=== PATIENT | female | born 1970 | race Caucasian/White ===

== ENCOUNTER 2018-12-13 04:01 | Emergency (ER) | payer BC ==
[~2018-12-13] VITALS: Ht 165.1 cm; Wt 117.9 kg
--- OUTSIDE RECORDS SUMMARY | ~2018-12-13 | XMS | Clinical Summary ---
Demographics + + + | Address | [address] | | | [place] [address] | + + + | Home Phone | | + + + | Preferred Language | Unknown | + + + | Marital Status | Single | + + + | Catholic Affiliation | Unknown | + + + | Race | Unknown | + + + | Ethnic Group | Unknown | + + + Author + + + | Author | [facility] | | | and [place] | + + + | Organization | [facility] | | | and [place] | + + + | Address | Unknown | + + + | Phone | Unavailable | + + + Support + + +---------+ + | Name | Relationship | Address | Phone | + + +---------+ + | Sujatha Haney | ECON | Unknown | | + + +---------+ + | Mary Lou Ayala | ECON | Unknown | | + + +---------+ + | Krysten Barahona | ECON | Unknown | | + + +---------+ + Care Team Providers + +------+ + | Care Cabinet Abrasive Sandblaster Name | Role | Phone | + +------+ + | Sachin Wallace DO | PP | Unavailable | + +------+ + Allergies No Known Allergies Current Medications + + +-------+---------+------+------+-------+ | Prescription | Sig. | Disp. | Refills | Star | End | Statu | | | | | | t | Date | s | | | | | | Date | | | + + +-------+---------+------+------+-------+ | omeprazole | Take 20 mg by mouth | | | | | Activ | | (PRILOSEC) 20 mg | every morning | | | | | e | | capsule | (before breakfast). | | | | | | + + +-------+---------+------+------+-------+ Active Problems + + + | Problem | Noted Date | + + + | Abdominal pain, unspecified site | 08/26/2014 | + + + + + | Overview: ICD-10 Record update | + + + + + | Nausea alone | 08/26/2014 | + + + + + | Overview: ICD-10 Record update | + + + + + | H. pylori infection | 08/26/2014 | + + + | Morbid obesity (HCC) | 08/26/2014 | + + + | Other chronic nonalcoholic liver disease | 08/26/2014 | + + + Family History + + +------+ + | Medical History | Relation | Name | Comments | + + +------+ + | Colon cancer | Maternal | | | | | Grandmoth | | | | | er | | | + + +------+ + | Diabetes | Maternal | | | | | Grandmoth | | | | | er | | | + + +------+ + | Anxiety disorder | Mother | | | + + +------+ + | Colon polyps | Sister | | | + + +------+ + + +------+ + + | Relation | Name | Status | Comments | + +------+ + + | Father | | | killed on the job | | | | (Age | | | | | 57) | | + +------+ + + | Maternal Grandmother | | | | + +------+ + + | Mother | | Alive | | + +------+ + + | Sister | | Alive | | + +------+ + + Social History + +-------+ +--------+------+ | Tobacco Use | Types | Packs/Day | Years | Date | | | | | Used | | + +-------+ +--------+------+ | Never Smoker | | | | | + +-------+ +--------+------+ + +---+---+---+ | Smokeless Tobacco: | | | | | Never Used | | | | + +---+---+---+ + + +---------+ + | Alcohol Use | Drinks/We | oz/Week | Comments | | | ek | | | + + +---------+ + | No | | | | + + +---------+ + + + + | Sex Assigned at | Date Recorded | | | | + + + | Not on file | | + + + Last Filed Vital Signs + + + + | Vital Sign | Reading | Time Taken | + + + + | Blood Pressure | 142/98 | 10/07/20147 PST | + + + + | Pulse | 70 | 10/07/20141056 PST | + + + + | Temperature | 36.7 C (98.1 F) | 10/07/20141056 PST | + + + + | Respiratory Rate | 16 | 10/07/20141056 PST | + + + + | Oxygen Saturation | 97% | 09/10/20141049 PST | + + + + | Inhaled Oxygen | - | - | | Concentration | | | + + + + | Weight | 136.1 kg (300 lb) | 10/07/20141056 PST | + + + + | Height | 165.1 cm (5' 5") | 09/10/2014 0800 PST | + + + + | Body Mass Index | 49.92 | 10/07/2014 1057 PST | + + + + Plan of Treatment + + + + + | Health Maintenance | Due Date | Last Done | Comments | + + + + + | Vaccine: | | | | | Dtap/Tdap/Td (1 - | 0 | | | | Tdap) | | | | + + + + + | Cervical Cancer | | | | | Screening (Pap) | 1 | | | + + + + + | PRIMARY CARE | | 10/07/2014 | | | OUTREACH-MODERATE | 6 | | | | RISK EVERY 1 YEAR | | | | + + + + + | Vaccine: Influenza | | | | | (#1) | 8 | | | + + + + + Results Not on filefrom Last 3 Months Insurance +---------+--------+ +------+ +---------+ | Payer | Benefi | Subscriber | Type | Phone | Address | | | t Plan | ID | | | | | | / | | | | | | | Group | | | | | +---------+--------+ +------+ +---------+ | PREMERA | PREMER | [id number] | PPO | [phone] | | | A | 2 | | [phone] | | | | PREFER | | | | | | | RED | | | | | +---------+--------+ +------+ +---------+ + +--------+ +--------+ + + | Guarantor Name | Accoun | Relation to | Date | Phone | Billing Address | | | t Type | Patient | of | | | | | | | | | | + +--------+ +--------+ + + | LORRIE AYALA | Person | Self | [birth year] | Work: | [address] | | | [employer] | | 1970 | +- | [place] [address] | | | [place] | | | [phone]: | | | | | | | | | | | | | | [phone] | | | | | | | [phone] | | + +--------+ +--------+ + +
--- OUTSIDE RECORDS SUMMARY | ~2018-12-13 | XMS | Clinical Summary ---
Demographics + + + | Address | [address] | | | [place] [address] | + + + | Home Phone | | + + + | Preferred Language | Unknown | + + + | Marital Status | Single | + + + | Baptism Affiliation | Unknown | + + + | Race | Unknown | + + + | Ethnic Group | Unknown | + + + Author + + + | Author | [facility] | | | and [place]ana | + + + | Organization | [facility] | | | and Davidana [...] Team Providers + +------+ + | Care Map Plotter Name | Role | Phone | + [...] +------+ +---------+ | PREMER[employer] | PREMER | [id number] | PPO | [phone] | | | [...] | 1970 | +- | [place] [address] | | | [place] | | | [phone]: | | | | | | | | | | | | | | [phone] | | | | | | | [phone] | | + +--------+ +--------+ + +
[~2018-12-13 04:01] MED LIST: CHLORTHALIDONE25 MG PO; INDOMETHACIN25 MG PO; LISINOPRIL10 MG PO; LOVASTATIN40 MG PO; METFORMIN HCL500 M1 PO; TRAMADOL HCL50 MG PO
[2018-12-13] MEDS ORDERED: ZYLOPRIM300 MG PO (04:19)
[2018-12-13] MEDS ORDERED: ACYCLOVIR800 MG PO (04:20)
[2018-12-13] MEDS ORDERED: NORCO 5-325 TA1 EACH PO (04:50)
== END 2018-12-13 05:00 | disposition home or self-care (01) ==
LOC: ED 04:01
DX: B02.9 Zoster without complications (principal); E11.9 Type 2 diabetes mellitus without complications; I10 Essential (primary) hypertension; G47.30 Sleep apnea, unspecified; Z79.899 Other long term (current) drug therapy
CPT/HCPCS: 99283

== ENCOUNTER 2022-05-19 08:29 | Emergency (ER) | payer OTHER ==
[~2022-05-19] VITALS: Ht 165.1 cm; Wt 117.9 kg
[~2022-05-19 08:29] MED LIST changes: +ACYCLOVIR800 MG PO; +NORCO 5-325 TA1 EACH PO; +ZYLOPRIM300 MG PO
[2022-05-19] MEDS ORDERED: SERTRALINE HCL50 MG PO (08:51)
[2022-05-19] MEDS ORDERED: ONDANSETRON ODT8 MG PO (09:48)
[2022-05-19] MEDS ORDERED: LOMOTIL TABLET1 EACH PO (09:48)
[2022-05-19] MEDS ORDERED: VITAMIN D21250 MCG PO (10:02)
[2022-05-19] MEDS ORDERED: ALLOPURINOL100 MG PO (10:04)
[2022-05-19] MEDS ORDERED: RYBELSUS3 MG PO (10:04)
== END 2022-05-19 10:41 | disposition home or self-care (01) ==
LOC: ED 08:29
DX: U07.1 COVID-19 (principal); K52.9 Noninfective gastroenteritis and colitis, unspecified; E11.9 Type 2 diabetes mellitus without complications; I10 Essential (primary) hypertension; M10.9 Gout, unspecified; Z79.84 Long term (current) use of oral hypoglycemic drugs; Z79.899 Other long term (current) drug therapy
CPT/HCPCS: 36415; 80053; 83735; 85025; 96374; 99284-25; J2405; J7030

== ENCOUNTER 2023-10-02 13:13 | Observation (INO) | payer OTHER ==
[~2023-10-02] VITALS: Ht 165.1 cm; Wt 110.2 kg
[~2023-10-02 13:13] MED LIST changes: +ALLOPURINOL100 MG PO; +CIPRO500 MG PO; +LOMOTIL TABLET1 EACH PO; +METRONIDAZOLE500 MG PO; +ONDANSETRON ODT8 MG PO; +RYBELSUS3 MG PO; +SERTRALINE HCL50 MG PO; +VITAMIN D21250 MCG PO
[2023-10-02 13:43] LABS: BASOPHILS 0.7 % (0-2); EOSINOPHILS 0.4 % (0-6); HEMATOCRIT 45.8 % (35.0-50.0); HEMOGLOBIN 14.8 g/dL (12.0-18.0); LYMPHOCYTES 10.8 % (24-44); MCH 29.8 (27-36); MCHC 32.3 g/dl (30-36); MONOCYTES 3.7 % (0-12); NEUTROPHILS 84.4 % (39-80); PLATELET COUNT 384 K/uL (140-440); RBC 4.98 M/ul (4.3-5.7); RDW 14.9 (10.5-15.0)
[2023-10-02 13:55] LABS: ALBUMIN 4.2 g/dL (3.4-5.0); ALBUMIN/GLOBULIN RATIO 1.2 (1.1-2.4); BILIRUBIN, TOTAL 0.5 ng/dL (0.2-1.0); BUN/CREATININE RATIO 13.83 (6.0-28.6); CALCIUM 9.5 mg/dL (8.5-10.1); CREATININE, SERUM 1.59 mg/dL (0.55-1.02); MAGNESIUM 1.7 mg/dL (1.8-2.4); PROTEIN, TOTAL 7.7 g/dL (6.4-8.2)
[2023-10-02] MEDS ORDERED: OZEMPIC1 MG/0.71 SUB-Q (14:39)
[2023-10-02 18:04] LABS: BILIRUBIN, URINE NEGATIVE (negative); BLOOD/HGB, URINE NEGATIVE (Negative); KETONE, URINE NEGATIVE (Negative); LEUK ESTERASE, URINE NEGATIVE (negative); NITRITE, URINE NEGATIVE (negative); PH, URINE 5.5 (5-7)
[2023-10-02 18:07] LABS: BACTERIA, URINE 1+ /hpf (negative); CASTS, URINE NONE SEEN \\lpf; COLLECTION TYPE, URINE CLEAN CATCH; CRYSTALS, URINE NONE SEEN (0-1+); EPITHELIAL CELLS, URINE SQUAMOUS 3+ /lpf (0-1+); RED BLOOD CELLS, URINE 0-1 /hpf (0-5); REFLEX CULTURE, URINE No (No)
[2023-10-02 19:56] VITALS: BP 114/86
[2023-10-02 20:13] VITALS: BP 105/60
[2023-10-02 20:15] VITALS: BP 95/54
--- NOTE | 2023-10-02 21:00 | NUR ---
SBAR REPORT RECEIVED FROM ADAM RENTERIA. PATIENT LUCY IS NOTED TO BE PLEASANT, COOPERATIVE, ORIENTED X4, AND ASKING APPROPRIATE QUESTIONS. NEURO- MOVES ALL EXTREMITIES, GENERALIZED PAIN, PERRL, ENDORSES HEADACHE, ASKS APPROPRIATE QUESTIONS CARDIAC- SR, AFEBRILE, NO EDEMA RESP- ROOM AIR, 98-99% GI/- NORMOACTIVE BOWEL TONES, REGULAR DIET, VOIDS APPROPRIATELY TO BATHROOM INT- REFUSED TO REMOVE JEANS. ASSESSED ABDOMEN, BACK, UPPER ARMS, NECK, AND FACE. RIGHT ARM AC AND HAND PERIPHERAL
[2023-10-02 22:00] VITALS: BP 108/69
--- NOTE | 2023-10-02 22:27 | EKG ---
[facility] [address] [place] [address] Signed Atrial flutter with variable AV block Possible Inferior infarct , age undetermined Marked ST abnormality, possible lateral subendocardial injury Abnormal ECG No previous ECGs available Confirmed by Emerald Mclaughlin MD () on 10/02/2023 10:27:34 PM Electronically Signed By: EMERALD MCLAUGHLIN MD 10/02/23 2227 PATIENT NAME: LUCYLORRIE WILLIAM Electrocardiogram DATE OF : 72 PHYSICIAN: EMERALD MCLAUGHLIN MD REPORT #: [id number] REPORT IS CONFIDENTIAL AND NOT TO BE RELEASED WITHOUT AUTHORIZATION
--- NOTE | 2023-10-02 22:28 | EKG ---
[facility] [address] [place] [address] Signed Normal sinus rhythm Normal ECG When compared with ECG of 02-OCT-2023 13:23, Sinus rhythm has replaced Atrial flutter Vent. rate has decreased BY [address] no longer depressed in Inferior leads ST no longer depressed in Anterolateral leads Confirmed by Emerald Mclaughlin MD () on 10/02/2023 10:28:42 PM Electronically Signed By: EMERALD MCLAUGHLIN MD 10/02/23 2228 PATIENT NAME: LORRIE AYALA Electrocardiogram DATE OF : [birth year] PHYSICIAN: EMERALD MCLAUGHLIN MD REPORT #: [id number] REPORT IS CONFIDENTIAL AND NOT TO BE RELEASED WITHOUT AUTHORIZATION
--- NOTE | 2023-10-02 22:50 | NUR ---
AMBULATED TO BATHROOM. STAND BY ASSIST. BP TOLERATED ACTIVITY WELL. HYPOTENSIVE CURRENT BP 100/49 (64) PERSISTENT HEADACHE NOW 11/25.
--- NOTE | 2023-10-02 23:00 | NUR ---
RIGHT AC AND RIGHT HAND PERIPHERAL FLUSHED AND PATENT
[2023-10-03] VITALS (10 sets, daily range): BP systolic 92–111; BP diastolic 55–66
--- NOTE | 2023-10-03 02:10 | NUR ---
PATIENT LORRIE IS FOUND TO BE RESTING WITH EYES CLOSED WITH O2 SATS AT 88%. SHE HAS A KNOWN DIAGNOSIS OF SLEEP APNEA AND STATES THAT SHE HAS BEEN NON-COMPLIANT WITH HER CPAP. SHE DOES NOT WANT RT TO SET UP A CPAP MACHINE. 2L NC NOW IN USE AND O2 IS MAINTAINING ON 96%.
[2023-10-03 05:29] LABS: BASOPHILS 0.8 % (0-2); EOSINOPHILS 1.4 % (0-6); HEMOGLOBIN 12.4 g/dL (12.0-18.0); LYMPHOCYTES 30.7 % (24-44); MCH 29.7 (27-36); MCHC 32.7 g/dl (30-36); MCV 90.8 fl (81-99); MONOCYTES 8.8 % (0-12); NEUTROPHILS 58.3 % (39-80); PLATELET COUNT 300 K/uL (140-440); RBC 4.19 M/ul (4.3-5.7); RDW 15.1 (10.5-15.0)
[2023-10-03 05:42] LABS: ALBUMIN/GLOBULIN RATIO 1.11 (1.1-2.4); ANION GAP 10.5 (7-21); BILIRUBIN, TOTAL 0.4 ng/dL (0.2-1.0); BUN/CREATININE RATIO 17.52 (6.0-28.6); CALCIUM 7.9 mg/dL (8.5-10.1); CREATININE, SERUM 0.97 mg/dL (0.55-1.02); MAGNESIUM 2.2 mg/dL (1.8-2.4); PHOSPHORUS, INORGANIC 3.8 mg/dL (2.5-4.9); POTASSIUM 3.5 mmol/L (3.5-5.1); PROTEIN, TOTAL 5.7 g/dL (6.4-8.2)
--- NOTE | 2023-10-03 06:22 | NUR ---
PATIENT LORRIE CONTINUES TO BE VERY PLEASANT AND COOPERATIVE. SHE STATES THAT SHE DOES FEEL "MUCH BETTER FROM YESTERDAY" AND KNOWS THAT SHE WILL HAVE TO TAKE THINGS SLOW. SHE CONTINUES TO ENDORSE A HEADACHE RANGING FROM 4-5/ 10. 650MG X2 PRN DOSES OF ACETAMINOPHEN GIVEN. NEURO- ALERT AND ORIENTED X 4, MOVES ALL EXTREMITIES, STRENGTH 5/5 IN ALL 4 EXTREMITIES, PERRL, HEADACHE PAIN, STAND BY ASSIST TO THE BATHROOM CARDIAC- HYPOTENSION NOTED WITH NO NEED FOR FURTHER INTERVENTION, MAP MAINTAINED ABOVE 65, AFEBRILE, SB-SR RESP- RA WHEN AWAKE, 2L NC WHEN ASLEEP FOR SA AND DESATURATION TO 87%. SHE IS NON COMPLIANT WITH A HOME CPAP AND DID NOT WANT TO WEAR ONE HERE IN THE HOSPITAL, CLEAR LUNG SOUNDS APPRECIATED THROUGHOUT GI/- 60G C DIET, NORMOACTIVE BT IN ALL 4 QUADRANTS, VOIDS APPROPRIATELY TO THE RESTROOM, NO BM INT- SEE ASSESSMENT LDA- RIGHT ARM PERIPHERALS X2 PLAN- ECHO TODAY
--- NOTE | 2023-10-03 07:30 | NUR ---
REPORT RECEIVED. O2 [address]
--- NOTE | 2023-10-03 07:58 | NUR ---
UR NOTE [facility] ATRIAL FIBRILLATION: OBSERVATION CARE (ISC) 10/02/23 MET OBSERVATION CARE ADMISSION CRITERIA
--- NOTE | 2023-10-03 08:00 | NUR ---
ASSESSMENT DONE. C/O HEADACHE. MILD SHORTNESS OF BREATH. HEART MONITOR SHOWS NSR. DENIES CHEST PAIN. TALKED WITH PATIENT ABOUT POC FOR THE DAY. INDICATES UNDERSTANDING. SITTING UP IN BED FOR BREAKFAST. C/O MILD NAUSEA.
--- NOTE | 2023-10-03 08:00 | NUR ---
PATIENT UP TO BR WITH SBA FOR VOID, STEADY ON HER FEET. CALLED APPROPRIATELY FOR ASSISTANCE BACK TO BED. BREAKFAST PROVIDED. WASHCLOTH PROVIDED FOR FACE AND HANDS. VITALS CHARTED. RN AT BEDSIDE.
--- NOTE | 2023-10-03 09:30 | NUR ---
oob to commode to void. c/o feeling a little light headed with movement. BACK TO BED W/O INCIDENT. O2 TO RA.
--- NOTE | 2023-10-03 09:30 | NUR ---
Spoke with No. She lives in a 1 story home with her 19 yo son. 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 She does not have any issues getting i or out of her home. She plans on dc to home today. 0830 report discussed he would like this pt to have holter monitor place on dc to home a ZIO AT monitor for 14 days. Pt is aware. Pt denies needs at home. She states money is tight, but she is over income for food stamps or food bank. She plans on dc to home later today.
--- NOTE | 2023-10-03 10:00 | NUR ---
DR. MCLAUGHLIN HERE TO SEE PATIENT. WHEN DR. MCLAUGHLIN TALKING TO PATIENT, O2 SAT ON RA LOW 84. PATIENT IS AWAKE AND ALERT,DENIES FEELING SHORT OF BREATH, UPON TAKING DEEP BREATHS, O2 SATS TO TO 98. WAVE FORM GOOD WITH GOOD PERFUSION. I.S INSTRUCTION GIVEN.
--- NOTE | 2023-10-03 10:33 | NUR ---
CHEST XRAY NEGATIVE. UP TO BR TO HAVE BM. IS STABLE ON FEET. DENIES SHORTNESS OF BREATH WITH EXERTION.
--- NOTE | 2023-10-03 10:45 | NUR ---
CONTINUES TO C/O HEADACHE LOCATED IN THE THE BACK OF HER HEAD AND NECK. RATES 7/10. NO TREATMENT GIVEN AT THIS TIME. LIGHTS ARE OFF IN THE ROOM FOR COMFORT.
[2023-10-03] MEDS ORDERED: ALLOPURINOL300 MG PO (11:16)
[2023-10-03] MEDS ORDERED: VITAMIN D21250 MCG PO (11:19)
[2023-10-03] MEDS ORDERED: JARDIANCE10 MG PO (11:21)
--- NOTE | 2023-10-03 11:45 | NUR ---
DE. MCLAUGHLIN HERE TO SEE PATIENT. PLAN IS TO DISCHARGE TO HOME THIS AFTERNOON.
--- NOTE | 2023-10-03 12:00 | NUR ---
SITTING UP IN BED FOR LUNCH. DENIES NAUSEA AT THIS TIME.
--- NOTE | 2023-10-03 12:45 | NUR ---
TOOK LUNCH WELL. AWAITING DISCHARGE ORDER. PATIENT IS RESTING AT THIS TIME.
--- NOTE | 2023-10-03 13:28 | NUR ---
discharge INSTRUCTIONS GIVEN WITH PATIENT UNDERSTANDING.
--- NOTE | 2023-10-03 13:45 | NUR ---
RT HERE TO PLACE HOLTER MONITOR. ACCESS CLERK DC'D. SL X 2 DC'D. PATIENT IS SITTING AT BEDSIDE.
--- NOTE | 2023-10-03 13:50 | NUR ---
Notified by staff pt is close to dc and dc order has been entered. Called Moriah in admitting and requested an OP chart for placement of Zio. completed an RX and dc note stating need. These will be sent to Medical records. Called Javan and he will place the monitor.
--- NOTE | 2023-10-03 15:15 | NUR ---
HOT DIP PLATING SUPERVISOR [facility] FRIEND IS TAKING PATIENT HOME.
== END 2023-10-03 15:00 | disposition home or self-care (01) ==
LOC: ED 13:13 → CCU 13:15
PROVIDERS: Emergency Medicine; ADMIT Family Medicine; ATTEND Family Medicine
DX: I48.91 Unspecified atrial fibrillation (principal); E83.42 Hypomagnesemia; E11.9 Type 2 diabetes mellitus without complications; I10 Essential (primary) hypertension; I48.92 Unspecified atrial flutter
CPT/HCPCS: 36415; 71045; 71260; 80053; 81001; 83605; 83690; 83735; 84100; 84484; 85025; 87040; 92960; 93005; 93010; 93306; 96365; 96366; 96372; 96375; 99285-25; A9270; G0378; J1650; J2250; J2405; J3010; J3475; J7030; Q9967